=== PATIENT | female | born 1945 | race Caucasian/White ===

== ENCOUNTER → 2017-06-19 | Outpatient (CLI) | payer MEDICARE ==
[2017-06-19 11:38] LABS: ALT 36 U/L (9-52); AST 23 U/L (14-36); Alkaline Phosphatase 81 U/L (38-126); Anion Gap 7 mmol/L; Blood Urea Nitrogen 16 mg/dL (7-17); Calcium 9.4 mg/dL (8.4-10.2); Carbon Dioxide 27 mmol/L (22-30); Chloride 105 mmol/L (98-107); Cholesterol 174 mg/dL (<200); Glucose 161 mg/dL (74-99); HDL Cholesterol 78 mg/dL (40-60); Non-African American GFR(MDRD) >60 (>60 ml/min/1.73 sqM); Potassium 4.2 mmol/L (3.5-5.1); Sodium 139 mmol/L (137-145); Total Bilirubin 0.6 mg/dL (0.2-1.3); Total Protein 6.5 g/dL (6.3-8.2)
[2017-06-19 16:23] LABS: Urine Creatinine 179.8 mg/dL
== END | disposition home or self-care (01) ==
LOC: LABWHC1 10:53
PROVIDERS: ATTEND Internal Medicine Endocrinology, Diabetes & Metabolism
DX: E11.65 Type 2 diabetes mellitus with hyperglycemia (principal)
CPT/HCPCS: 36415; 80053; 80061; 82043; 82570

== ENCOUNTER → 2018-05-01 | Outpatient (CLI) | payer MEDICARE ==
[2018-05-01 16:25] LABS: Albumin 4.3 g/dL (3.80-4.90); Albumin/Globulin Ratio 2.53 (1.20-2.10); Anion Gap 8.4 mmol/L (4.00-12.00); Calcium 9.3 mg/dL (8.7-10.3); Carbon Dioxide 27.6 mmol/L (21.6-31.8); Globulin 1.7 g/dL (2.1-3.7); LDL Cholesterol,Calculated 123.4 mg/dL (0.0-131.0); Potassium 4.2 mmol/L (3.5-5.5); Total Bilirubin 0.6 mg/dL (0.3-1.2); VLDL Calculation 23.6 mg/dL (5.00-40.00)
[2018-05-01 18:45] LABS: Hemoglobin A1C 7.2 % (4.0-6.0)
== END ==
LOC: LABWHC1 10:02
PROVIDERS: ATTEND Internal Medicine Endocrinology, Diabetes & Metabolism
DX: E11.65 Type 2 diabetes mellitus with hyperglycemia (principal)
CPT/HCPCS: 36415; 80053; 80061; 82043; 82570; 83036

== ENCOUNTER 2018-11-28 17:36 | Emergency (ER) | payer MEDICARE ==
[2018-11-28] MEDS ORDERED: KETOROLAC 30 MG/ML 1 ML VIAL IVP STA (18:14)
[2018-11-28 18:27] LABS: Glucose,Whole Blood 199 mg/dL (75-99)
[2018-11-28] MEDS ORDERED: INSULIN NPH 300 UNIT/3 ML VIAL SQ STA (18:38)
--- NOTE | 2018-11-28 19:30 | ED ---
General Adult HPI - General Chief complaint: Extremity Injury, Upper Stated complaint: Fall Time Seen by Provider: 11/28/18 17:42 Source: patient, EMS Mode of arrival: EMS Limitations: no limitations - History of Present Illness Initial comments: 72-year-old female patient presents to the emergency department today for evaluation after experiencing a fall. Patient states she was walking from a store through the parking lot when she tripped over some rough asphalt and fell forward. Patient states she did strike her face on the ground. She denies any loss of consciousness with the injury. Patient states she did fall on out stretched hands and is experiencing right shoulder discomfort. Patient states she also landed on both knees. States both knees are painful to touch. States she does have pain with bending. She denies any numbness or tingling to extremities. Denies any headache, blurred vision, double vision, nausea, or vomiting. Denies any dizziness or weakness. Denies any previous injury to the shoulder or knees. Patient denies any neck pain, back pain, chest pain, shortness of breath, abdominal pain, nausea, vomiting, or difficulties with bowel movements or urination. - Related Data Home Medications Medication Instructions Recorded Confirmed Ergocalciferol (Vitamin D2) 50,000 unit PO Q7D 11/28/18 11/28/18 [Vitamin D2] Insulin NPH Human Isophane 15 unit SQ BID 11/28/18 11/28/18 [NovoLIN N] Ramipril [Altace] 2.5 mg PO DAILY 11/28/18 11/28/18 Sertraline [Zoloft] 50 mg PO HS 11/28/18 11/28/18 Sertraline [Zoloft] 100 mg PO DAILY 11/28/18 11/28/18 Simvastatin [Zocor] 40 mg PO HS 11/28/18 11/28/18 traMADol HCL [Ultram] 50 mg PO TID PRN 11/28/18 11/28/18 Allergies Allergy/AdvReac Type Severity Reaction Status Date / Time No Known Allergies Allergy Verified 11/28/18 18:07 Review of Systems ROS Statement: Those systems with pertinent positive or pertinent negative responses have been documented in the HPI. ROS Other: All systems not noted in ROS Statement are negative. Past Medical History Past Medical History: Diabetes Mellitus, Hyperlipidemia History of Any Multi-Drug Resistant Organisms: None Reported Past Surgical History: Cholecystectomy, Tonsillectomy Past Psychological History: Anxiety, Depression Smoking Status: Former smoker Past Alcohol Use History: None Reported Past Drug Use History: None Reported General Exam Limitations: no limitations General appearance: alert, in no apparent distress, other (Physical well- developed, well-nourished elderly female patient in no acute distress. Vital signs upon presentation are temperature 98.0F, pulse 94, respiration 16, blood pressure 146/107, pulse ox 97% on room air.) Head exam: Present: atraumatic, normocephalic, normal inspection Eye exam: Present: normal appearance, PERRL, EOMI. Absent: scleral icterus, conjunctival injection, periorbital swelling ENT exam: Present: normal oropharynx, mucous membranes moist, other (Patient has swelling and abrasion noted to the left lower lip. Dentition is intact with no loose or broken teeth.). Absent: normal exam Neck exam: Present: normal inspection, full ROM, other (Nontender, no step-off, no deformity to firm midline palpation of the posterior cervical spine. Full range of motion without pain or limitation.). Absent: tenderness, meningismus, lymphadenopathy Respiratory exam: Present: normal lung sounds bilaterally. Absent: respiratory distress, wheezes, rales, rhonchi, stridor Cardiovascular Exam: Present: regular rate, normal rhythm, normal heart sounds. Absent: systolic murmur, diastolic murmur, rubs, gallop, clicks GI/Abdominal exam: Present: soft, normal bowel sounds. Absent: distended, tenderness, guarding, rebound, rigid Extremities exam: Present: full ROM, normal capillary refill, other (Right shoulder exam is normal, skin is pink, warm, dry. Cap refills less than 3 seconds. No swelling. No abrasion. No deformity. Bilateral knees exhibit soft tissue swelling anteriorly. There is abrasion noted to the left anterior knee. Ecchymosis noted to the right anterior knee. Patient does have full flexion and extension bilaterally. Skin is pink, warm, dry. Cap refills less than 3 seconds. Pedal and posttibial pulses are 2+ and equal bilaterally.). Absent: normal inspection, tenderness, pedal edema, joint swelling, calf tenderness Back exam: Present: normal inspection, other (Nontender, no step-off, no deformity to firm midline palpation of the thoracic and lumbar vertebrae. Full range of motion without pain or limitation.). Absent: vertebral tenderness Neurological exam: Present: alert, oriented X3, CN II-XII intact Psychiatric exam: Present: normal affect, normal mood Skin exam: Present: warm, dry, intact, normal color. Absent: rash Course Vital Signs 11/28/18 11/28/18 11/28/18 17:47 19:37 20:49 Temperature 98.0 F 97.2 F L 98 F Pulse Rate 94 87 83 Respiratory 16 18 16 Rate Blood Pressure 146/107 140/78 156/94 O2 Sat by Pulse 97 97 98 Oximetry Medical Decision Making - Medical Decision Making 72-year-old female patient presents to the emergency department today for evaluation experiencing a fall. Patient was complaining of bilateral knee pain and right shoulder pain. She had no neck or back pain. No spinal tenderness. X-rays of the bilateral knees were obtained and showed no acute fractures. X-ray of the right shoulder showed no acute fracture dislocation. I did discuss findings and results with the patient. She'll be discharged home to follow-up with greenhouse specialist for further evaluation. [facility] and will be giving them a call. She is instructed to take Tylenol and Motrin for pain control. She is instructed to apply ice to the painful areas and to rest the limbs. She is instructed to follow-up with the primary care physician for recheck in 1-2 days. Return parameters were discussed in detail. She verbalizes understanding and agrees with this plan. - Lab Data Lab Results 11/28/18 Range/Units 18:26 POC Glucose (mg/dL) 199 H (75-99) mg/dL POC Glu Side Stitching Machine Operator ID Jocelyn Monzon - Radiology Data Radiology results: report reviewed, image reviewed 6 views of the bilateral knees are obtained. Report was reviewed in its entirety. Impression by Dr. Almanza shows no acute process, right and left knee radiographic examination. 3 views of the right shoulder obtained. Report reviewed in its entirety. Impression by Dr. Almanza shows no acute process. Disposition Clinical Impression: Right shoulder strain, Knee contusion, Abrasion of left knee Disposition: HOME SELF-CARE Condition: Good Instructions (If sedation given, give patient instructions): Rotator Cuff Injury (ED), Contusion in Adults (ED), Abrasion (ED) Additional Instructions: Follow-up with greenhouse specialist for recheck as soon as possible. Take Tylenol or Motrin for pain control. Keep wounds clean and dry. Follow-up with her primary care physician for recheck in 1-2 days. Return to the emergency department immediately for any new, worsening, or concerning symptoms. Is patient prescribed a controlled substance at d/c from ED?: No Referrals: Doyle Chamorro DO [Primary Care Provider] - 1-2 days Time of Disposition: 20:38
--- NOTE | 2018-11-28 19:54 | XR ---
PROCEDURE: XR knee complete bilateral - 6V total DATE AND TIME: 11/28/2018 7:07 PM CLINICAL INDICATION: PHH; Pain TECHNIQUE: Department protocol COMPARISON: None RIGHT KNEE FINDINGS: There is no fracture or malalignment. The soft tissues are unremarkable. Scatter ed mild and moderate osteoarthritis changes noted. LEFT KNEE FINDINGS: There is no fracture or malalignment. The soft tissues are unremarkable. Scattere d mild and moderate osteoarthritis changes noted. IMPRESSION: No acute process, right and left knee radiographic examination.
--- NOTE | 2018-11-28 19:57 | XR ---
PROCEDURE: XR shoulder complete RT - 3V DATE AND TIME: 11/28/2018 7:07 PM CLINICAL INDICATION: Trauma, pain TECHNIQUE: Department protocol COMPARISON: None FINDINGS: There is no fracture or malalignment. The soft tissues are unremarkable. IMPRESSION: NO ACUTE PROCESS.
[2018-11-28] MEDS ORDERED: HYDROcodone/APAP 5-325MG 1 EACH TAB PO STA (20:42)
[2018-11-28] MEDS ORDERED: ACET/COD 300 MG/30 MG STARTER PACK 6 TAB BTL PO STA (20:42)
[2018-11-28 20:50] VITALS: BP 156/94; PULSE 83; RESP 16; TEMP 98
== END 2018-11-28 21:15 | disposition home or self-care (01) ==
LOC: EC 17:36
DX: S46.911A Strain of unspecified muscle, fascia and tendon at shoulder and upper arm level, right arm, initial encounter (principal); S80.01XA Contusion of right knee, initial encounter; S80.212A Abrasion, left knee, initial encounter; S00.511A Abrasion of lip, initial encounter; E11.9 Type 2 diabetes mellitus without complications; E78.5 Hyperlipidemia, unspecified; F41.9 Anxiety disorder, unspecified; F32.9 Major depressive disorder, single episode, unspecified; Z87.891 Personal history of nicotine dependence; Z79.4 Long term (current) use of insulin; Z79.899 Other long term (current) drug therapy; W18.09XA Striking against other object with subsequent fall, initial encounter; Y93.01 Activity, walking, marching and hiking
CPT/HCPCS: 36415; 73562; 73030; 99284; 96374; J1885

== ENCOUNTER → 2019-05-01 | Outpatient (CLI) | payer MEDICARE ==
--- NOTE | 2019-05-02 04:16 | US ---
EXAMINATION TYPE: US carotid duplex BILAT DATE OF EXAM: 05/01/2019 COMPARISON: No previous ultrasound. CLINICAL HISTORY: 73-year-old female Z91.81 FREQ FALLS. Frequent falls. Hx diabetes, HTN, hyperlipide dori. Previous smoker. TECHNIQUE: Carotid duplex ultrasound examination. In direct upper criteria is utilized. FINDINGS: EXAM MEASUREMENTS: RIGHT: Peak Systolic Velocity (PSV) cm/sec ----- Right CCA: 59.8 ----- Right ICA: 74.3 ----- Right ECA: 71.0 ICA/CCA ratio: 1.2 RIGHT: End Diastole cm/sec ----- Right CCA: 15.4 ----- Right ICA: 25.9 ----- Right ECA: 0.0 LEFT: Peak Systolic Velocity (PSV) cm/sec ----- Left CCA: 66.8 ----- Left ICA: 76.2 ----- Left ECA: 60.7 ICA/CCA ratio: 1.1 LEFT: End Diastole cm/sec ----- Left CCA: 16.2 ----- Left ICA: 27.3 ----- Left ECA: 0.0 VERTEBRALS (direction of flow): Right Vertebral: Antegrade Left Vertebral: Antegrade Rhythm: Normal Leveler Helper notes: Intimal thickening seen bilaterally. Minimal plaque seen bilateral carotid bifurca tions. No elevated velocities obtained. Prominent but nonenlarged lymph node seen along the left neck measurin.4 x 0.9 x 0.5 cm. IMPRESSION: No hemodynamically significant proximal ICA stenosis on either side. Criteria for Assigning % of Stenosis / Diameter reduction (Estimation based on the indirect measurements of the internal carotid artery velocities (ICA PSV). 1. Normal (no stenosis)=ICA PSV < 125 cm/s: ratio < 2.0: ICA EDV<40 cm/s. 2. Less than 50% stenosis=ICA PSV < 125 cm/s: ratio < 2.0: ICA EDV<40 cm/s. 3. 50 to 69% stenosis=ICA PSV of 125 to 230 cm/s: ration 2.0 ? 4.0: ICA EDV 40-100 cm/s. 4. Greater than 70% stenosis to near occlusion= ICA PSV > 230 cm/s: ratio > 4.0: ICA EDV > 100 cm/s. 5. Near occlusion= ICA PSV velocities may be low or undetectable: variable ratio and ICA EDV. 6. Total occlusion=unable to detect flow.
== END | disposition home or self-care (01) ==
LOC: RADUSWWP 16:57
PROVIDERS: ATTEND Family Medicine
DX: R27.9 Unspecified lack of coordination (principal); Z91.81 History of falling
CPT/HCPCS: 93880

== ENCOUNTER → 2019-05-01 | Outpatient (CLI) | payer MEDICARE ==
--- NOTE | 2019-05-01 22:42 | MR ---
EXAMINATION TYPE: MR brain wo con DATE OF EXAM: 05/01/2019 COMPARISON: MRI brain October 19, 2014 HISTORY: Frequent falls, head injury, incontinence, cognitive and motor skill impairment, and bilater al hearing loss TECHNIQUE: Multiplanar, multisequence imaging of the brain and brainstem is performed without IV cont rast. FINDINGS: Diffusion weighted images demonstrate no evidence of a recent infarct or other diffusion abnormality. There is no worrisome extra-axial fluid collection. There is diffuse ventricular and sulcal prominenc e. Findings most prominent over bilateral frontal lobes. There are scattered foci of T2 hyperintensit y seen throughout the white matter bilaterally most prominent in the periventricular levels. T2*weigh hetal images show no suspicious intraparenchymal blood product. Midline structures redemonstrate empty sella morphology. The craniocervical junction appears within normal limits. Normal vascular flow voids are present. The visualized sinuses are clear and the globe s are intact. No suspicious fluid signal bilateral mastoid air cells is present. IMPRESSION: Fairly moderate diffuse cerebral atrophy most prominent over bilateral frontal lobes and moderate chronic small vessel ischemic change. Some progression from 2015 study thought present.
== END | disposition home or self-care (01) ==
LOC: RADMRIMAIN 18:05
PROVIDERS: ATTEND Family Medicine
DX: G31.9 Degenerative disease of nervous system, unspecified (principal); I67.82 Cerebral ischemia
CPT/HCPCS: 70551

== ENCOUNTER → 2020-11-16 | Outpatient (CLI) | payer MEDICARE ==
--- NOTE | 2020-11-20 10:11 | MM ---
Reason for exam: clinical finding. History: Took estrogen for 1 year beginning at age 50. Physical Findings: Nurse Summary: 1cm nodule in the left breast at 9 o'clock (nurse mj). MG 3D Diag Mammo W/Cad CARLITO Bilateral CC and MLO view(s) were taken. These results were verbally communicated with the patient and result sheet given to the patient on 11/16/20. ASSESSMENT: Incomplete: need additional imaging evaluation, BI-RAD 0 RECOMMENDATION: Ultrasound of the left breast. (palpable)
--- NOTE | 2020-11-20 10:11 | USB ---
Reason for exam: additional evaluation requested from abnormal screening. History: Took estrogen for 1 year beginning at age 50. US Breast Limited LT Left limited breast ultrasound including focal area of concern, retroareolar and axilla demonstrates a 0.4 x 0.4 x 0.4cm round, cystic lesion at 9 o'clock palpable, benign appearing oil cyst and a 1.2 x 1.2 x 0.5cm oval axilla lymph node at the axilla, reactive benign appearing lymph node. These results were verbally communicated with the patient and result sheet given to the patient on 11/16/20. ASSESSMENT: Benign, BI-RAD 2 RECOMMENDATION: Routine screening mammogram of both breasts in 1 year.
== END | disposition home or self-care (01) ==
LOC: RADMAMWWP 08:57
PROVIDERS: ATTEND Family Medicine
DX: N60.12 Diffuse cystic mastopathy of left breast (principal); R59.0 Localized enlarged lymph nodes; N63.25 Unspecified lump in the left breast, overlapping quadrants
CPT/HCPCS: 77066; 76642; G0279; 77062

== ENCOUNTER → 2022-01-21 | Outpatient (CLI) | payer MEDICARE ==
[2022-01-21 16:37] LABS: ALT 17 U/L (8-44); AST 22 U/L (13-35); African American GFR (CKD) 73.3 (60.0-200.0); Albumin 4.2 g/dL (3.8-4.9); Albumin/Globulin Ratio 1.76 (1.60-3.17); Alkaline Phosphatase 74 U/L (41-126); Calcium 9.5 mg/dL (8.7-10.3); Carbon Dioxide 28.5 mmol/L (20.0-27.5); Chloride 103 mmol/L (96-109); Chol/HDL Ratio 2.37 Ratio; Globulin 2.4 g/dL (1.6-3.3); Glucose 108 mg/dL (70-110); LDL Cholesterol,Calculated 95.5 mg/dL (0.0-131.0); Non-African American GFR(CKD) 63.2 (60.0-200.0); Potassium 3.8 mmol/L (3.5-5.5); Sodium 143 mmol/L (135-145); Total Protein 6.6 g/dL (6.2-8.2)
[2022-01-21 19:31] LABS: Microalbumin Creatinine Ratio <30 mg/g Creat (0-30)
== END | disposition home or self-care (01) ==
LOC: LABWHC1 08:20
PROVIDERS: ATTEND Internal Medicine Endocrinology, Diabetes & Metabolism
DX: E11.65 Type 2 diabetes mellitus with hyperglycemia (principal)
CPT/HCPCS: 36415; 80053; 80061; 82043; 82570; 83036; 84443

== ENCOUNTER → 2022-03-16 | Outpatient (CLI) | payer MEDICARE ==
--- NOTE | 2022-03-16 15:55 | P.SLEEP ---
History of Present Illness DATE: 03/16/2022 CONSULTATION/NEW PATIENT EVALUATION HISTORY OF PRESENT ILLNESS/SLEEP-WAKE EVALUATION: 76 year old lady had been e valuated in the sleep center for possible obstructive sleep apnea hypopnea syndrome. SLEEP SCHEDULE: Usually sleep schedule from midnight to 2 AM until 11-30 to 12 noon. FALLING ASLEEP: Usually no problems with falling asleep, although patient has TV set and bedroom and also watching her phone. DURING SLEEP: Patient has loud snoring and witnessed episodes of sleep apneas. She wakes up from sleep multiple times with up to 4 episodes of nocturia. Positive history of dry mouth and gasping for air. No history of hypnogogical hallucinations, sleep paralysis, or cataplexy. DURING THE DAY/WAKE STATE: In the morning patient wake up tired, has problems with memory and concentration, falling asleep during the day. Positive history of the irritability, depression, anxiety. [place] sleepiness scale is increased to 11. Patient may take unintentional naps while watching TV. PAST MEDICAL HISTORY: Hypertension, diabetes mellitus, sinuses problems, anxiety, depression, anemia in childhood. PAST SURGICAL HISTORY: Cholecystectomy, bilateral cataract surgery. MEDICATIONS: Metformin, insulin, ramipril, simvastatin, oxybutynin, aspirin, Zoloft. SOCIAL HISTORY: Negative for smoking, alcohol consumption occasional. FAMILY HISTORY: Diabetes. REVIEW OF SYSTEMS: Snoring, multiple awakenings from sleep, sleepiness during the day. No fevers. No double vision. No recent chest pain. No shortness of breath. No abdominal pain. No bleeding episodes. No blood in urine. No seizure episodes. PHYSICAL EXAMINATION: GENERAL: A pleasant patient without any distress. VITAL SIGNS: BP 142/75, HR 69, RR 14, weight 186.4 pounds, height 5 foot 3-3/4 inches, body mass index 32.2. HEENT: PERRLA, EOMI. Evaluation of oropharynx showed tongue protrudes midline, low position of soft palate Mallampati 23. NECK: Supple. No JVD. Thyroid is not palpable. 15 inches in circumference. LUNGS: Clear to percussion and to auscultation. Good air exchange. No wheezing or rhonchi. HEART: S1, S2 regular. No murmurs, gallops or rubs. ABDOMEN: Soft and nontender. Bowel sounds are present. No organomegaly appreciated. EXTREMITIES: No clubbing or cyanosis. ASSEMBLY LEAD PERSON: Awake, alert, and oriented x3. Cranial nerves 2 to 7 intact. There is no fasciculation or atrophy noted. No focal deficits observed. ASSESSMENT: 1. Snoring, witnessed episodes of sleep apneas, moderately low position of soft palate, sleepiness [place] Sleepiness Scale is 11, multiple awakenings from sleep. Obstructive sleep apnea hypopnea syndrome. 2. Hypertension. 3 diabetes mellitus. 4. Anxiety. 5 depression. 6. Sinuses problems. 7. Status post cholecystectomy. 8. Status post cataract surgery. 9. Sleep delay syndrome PLAN: 1. Polysomnography for evaluation of patient's breathing during sleep. 2. CPAP/BiPAP titration if sleep study confirms obstructive sleep apnea- hypopnea syndrome. 3. Preferable position during sleep on the side. 4. No driving if patient feels any sleepiness. Patient is aware of civil and criminal liability for unsafe driving. 5. Sleep hygiene with regular sleep time for at least 7.5-8 hours. 6. Watching weight. 7. Less bright light in the evening to move sleep schedule time early. Thank you very much for referring this patient for consultation. Sincerely, Jose Miguel Wagner MD, PhD, FAASM. Diplomat of [place] [employer], Sleep Medicine Board by [place] [employer] [place] [employer] Process Control Operator of [facility] Past Medical History Past Medical History: Diabetes Mellitus, Hyperlipidemia History of Any Multi-Drug Resistant Organisms: None Reported Past Surgical History: Cholecystectomy, Tonsillectomy Past Psychological History: Anxiety, Depression Past Alcohol Use History: None Reported Past Drug Use History: None Reported Medications and Allergies Home Medications Medication Instructions Recorded Confirmed Type Ergocalciferol (Vitamin D2) 50,000 unit PO Q7D 11/28/18 11/28/18 History [Vitamin D2] Insulin NPH Human Isophane 15 unit SQ BID 11/28/18 11/28/18 History [NovoLIN N] Sertraline [Zoloft] 50 mg PO HS 11/28/18 11/28/18 History Sertraline [Zoloft] 100 mg PO DAILY 11/28/18 11/28/18 History Simvastatin [Zocor] 40 mg PO HS 11/28/18 11/28/18 History ramipriL [Altace] 2.5 mg PO DAILY 11/28/18 11/28/18 History traMADol HCL [Ultram] 50 mg PO TID PRN 11/28/18 11/28/18 History Allergies Allergy/AdvReac Type Severity Reaction Status Date / Time No Known Allergies Allergy Verified 11/28/18 18:07 Sleep Note - Sleep Note Sleep Note: Temperature: Pulse Rate: Respiratory Rate: Blood Pressure: SpO2: Height: Weight: BMI: Neck Circumference:
== END ==
LOC: SLEEP 14:41
PROVIDERS: ATTEND Internal Medicine
DX: G47.33 Obstructive sleep apnea (adult) (pediatric) (principal); I10 Essential (primary) hypertension; E11.9 Type 2 diabetes mellitus without complications; G47.21 Circadian rhythm sleep disorder, delayed sleep phase type; F41.9 Anxiety disorder, unspecified; F32.A Depression, unspecified; Z90.49 Acquired absence of other specified parts of digestive tract; Z98.49 Cataract extraction status, unspecified eye; J34.9 Unspecified disorder of nose and nasal sinuses; Z87.891 Personal history of nicotine dependence
CPT/HCPCS: 99211

== ENCOUNTER → 2022-03-16 | Outpatient (CLI) | payer MEDICARE ==
--- NOTE | 2022-03-16 13:37 | XR ---
EXAMINATION TYPE: XR ankle complete LT DATE OF EXAM: 03/16/2022 1:21 PM INDICATION: Patient age:Female; 76 years old; Reason for study: BILAT KNEE PAIN L ANKLE PAIN; [facility]. COMPARISON: None TECHNIQUE: The left ankle is imaged in frontal, lateral and oblique projections. FINDINGS: There is no evidence of acute osseous pathology. The joint spaces are well-preserved without evidenc e of subluxation or dislocation. Kager's fat pad is intact. Mild soft tissue swelling around the ankl e. No radiopaque foreign bodies are identified. IMPRESSION: 1. No evidence of acute fracture. 2. Subcutaneous swelling around the ankle likely secondary to underlying soft tissue injury.
--- NOTE | 2022-03-16 13:42 | XR ---
EXAMINATION TYPE: XR knee complete bilateral DATE OF EXAM: 03/16/2022 1:21 PM INDICATION: Patient age:Female; 76 years old; Reason for study: BILAT KNEE PAIN L ANKLE PAIN; COMPARISON: None. TECHNIQUE: The Bilateral knee(s) was examined in 3 projections. Frontal, lateral and oblique. FINDINGS: Right: There is near complete joint space loss on the lateral aspect of the right knee. There is oste ophyte formation of the tibial plateau and patellar involving the patellofemoral groove. No evidence of fracture or joint effusion. Left: Mild degeneration changes with osteophyte formation and tibial plateau and patella. Minimal mehran nt space loss noted of the medial knee. No evidence of fracture. Atherosclerosis of the arterial vasculature. IMPRESSION: 1. No acute osseous pathology. 2. Moderate to severe tricompartmental osteoarthrosis changes of the right knee most pronounced in th e patellofemoral joint and the lateral aspect of the knee. 3. Mild tricompartmental osteoarthrosis of the left lower extremity.
== END | disposition home or self-care (01) ==
LOC: RADXRMAIN 12:20
PROVIDERS: ATTEND Family Medicine
DX: M17.0 Bilateral primary osteoarthritis of knee (principal)

== ENCOUNTER → 2022-09-12 | Outpatient (CLI) | payer MEDICARE ==
[2022-09-15 11:49] LABS: Glucose 116
[2022-09-15 11:50] LABS: Chloride 105; Potassium 4.3; Sodium 144
[2022-09-15 11:51] LABS: Anion Gap 8.2; Carbon Dioxide 30.8
[2022-09-15 11:52] LABS: African American GFR (CKD) 76.6; BUN/Creat Ratio 25.94; Non-African American GFR(CKD) 66.1
[2022-09-15 11:53] LABS: Calcium 9.3; Total Protein 6.6
[2022-09-15 11:54] LABS: Albumin 4.5; Globulin 2.1
[2022-09-15 11:55] LABS: Albumin/Globulin Ratio 2.16
[2022-09-15 11:56] LABS: ALT 23; AST 27; Alkaline Phosphatase 86
[2022-09-15 11:58] LABS: VLDL Calculation 13.82
[2022-09-15 12:01] LABS: Chol/HDL Ratio 2.29
[2022-09-15 12:07] LABS: Blood Urea Nitrogen 22.7
== END | disposition home or self-care (01) ==
LOC: LABWHC1 09:07
PROVIDERS: ATTEND Internal Medicine Endocrinology, Diabetes & Metabolism
DX: E11.65 Type 2 diabetes mellitus with hyperglycemia (principal)
CPT/HCPCS: 36415; 80053; 80061; 82043; 82570; 83036; 84443

== ENCOUNTER 2023-08-06 03:11 | Inpatient (IN) | payer MEDICARE ==
--- NOTE | 2023-08-06 04:07 | XR ---
EXAM: XR Left Tibia and Fibula, 2 Views CLINICAL HISTORY: ITS.REASON XR Reason: fall injury TECHNIQUE: Frontal and lateral views of the left tibia and fibula. COMPARISON: No relevant prior studies available. IMPRESSION: 1. Trimalleolar fracture involving the medial malleolus, lateral malleolus, and posterior malleolus with mild lateral dislocation of the talus. 2. Soft tissue swelling.
[2023-08-06] MEDS: fentaNYL (PF) 50 MCG/ML 2 ML AMP IV STA (04:25)
[2023-08-06] MEDS ORDERED: NALOXONE 0.4 MG/ML 1 ML VIAL IV PRN (05:26)
[2023-08-06] MEDS ORDERED: HYDROmorphone 0.5 MG/0.5 ML SYRINGE IVP PRN (05:26)
[2023-08-06] MEDS ORDERED: DEXTROSE 50% SYRINGE 50 ML IVP PRN ×2 (05:28)
[2023-08-06 05:51] LABS: HCT 37.1 % (34.0-46.0); HGB 12.6 gm/dL (11.4-16.0); MCH 31.6 pg (25.0-35.0); MCV 92.8 fL (80.0-100.0); Mean Platelet Volume 7.9; Platelet Count 158 k/uL (150-450); RBC 3.99 m/uL (3.80-5.40); RDW 12.5 % (11.5-15.5); WBC 6.6 k/uL (3.8-10.6)
[2023-08-06 06:01] LABS: African American GFR (CKD) >90 (>60 ml/min/1.73 sqM); Anion Gap 9 mmol/L; Blood Urea Nitrogen 20 mg/dL (7-17); Calcium 8.8 mg/dL (8.4-10.2); Carbon Dioxide 25 mmol/L (22-30); Chloride 107 mmol/L (98-107); Glucose 100 mg/dL (74-99); Non-African American GFR(CKD) >90 (>60 ml/min/1.73 sqM); Potassium 3.9 mmol/L (3.5-5.1); Sodium 141 mmol/L (137-145)
[2023-08-06 06:16] LABS: INR 0.9 (<1.2)
--- NOTE | 2023-08-06 06:30 | ED ---
Extremity Problem HPI - General Chief complaint: Extremity Injury, Lower Stated complaint: Fall, ankle injury Time Seen by Provider: 08/06/23 03:17 Source: patient, EMS Mode of arrival: EMS Limitations: no limitations - History of Present Illness Initial comments: This patient is a 77-year-old woman here to have evaluation of left leg injury. The patient states that she typically walks with a walker and as she was going through her home tonight she stumbled. She states she saw a blinding flash of light and fell. She was then not able to bear any weight on her left ankle. The patient noticed that she had a laceration there and was bleeding. She called EMS who arrived and noted laceration. They dressed the injury and transported her here. Patient complains of pain at the left ankle, worse with attempted movement. She is not able to put any weight on her leg. MD Complaint: extremity pain -: hour(s) Location: left History of Same: No Quality: sharp Consistency: constant Improves with: immobilization Worsens with: palpation Associated Symptoms: denies other symptoms - Related Data Home Medications Medication Instructions Recorded Confirmed Sertraline [Zoloft] 150 mg PO DAILY 11/28/18 08/06/23 Simvastatin [Zocor] 40 mg PO DAILY 11/28/18 08/06/23 ramipriL [Altace] 2.5 mg PO HS 11/28/18 08/06/23 traMADol HCL [Ultram] 50 mg PO BID PRN 11/28/18 08/06/23 Aspirin EC [Ecotrin Low Dose] 81 mg PO DAILY 08/06/23 08/06/23 Docusate [Colace] 100 mg PO HS 08/06/23 08/06/23 Fiber Well Gummies 1 cap PO HS 08/06/23 08/06/23 Furosemide [Lasix] 20 mg PO DAILY PRN 08/06/23 08/06/23 Loratadine 10 mg PO HS 08/06/23 08/06/23 SUMAtriptan succinate [Imitrex] 100 mg PO BID PRN 08/06/23 08/06/23 diphenhydrAMINE HCL [Benadryl] 25 mg PO HS 08/06/23 08/06/23 metFORMIN HCL 1,000 mg PO DAILY PRN 08/06/23 08/06/23 Previous Rx's Medication Instructions Recorded Cholecalciferol [Vitamin D3 (25 50 mcg PO DAILY tab 08/09/23 Mcg = 1000 Iu)] Docusate [Colace] 100 mg PO BID #60 capsule 08/09/23 Enoxaparin [Lovenox] 40 mg SQ DAILY each 08/09/23 Famotidine [Pepcid] 20 mg PO BID tab 08/09/23 HYDROcodone/APAP 5-325MG [Franklin 5] 1 - 2 each PO Q4-6H PRN #32 tab 08/09/23 INSULIN ASPART (NovoLOG) [NovoLOG 0 unit SQ ACHS each 08/09/23 (formulary)] Magnesium Hydroxide [Milk of 2,400 mg PO DAILY PRN ml 08/09/23 Magnesia] Multivitamins, Thera [Multivitamin 1 each PO DAILY@1200 tab 08/09/23 (formulary)] Zinc Sulfate [Orazinc] 220 mg PO DAILY 14 Days #14 cap 08/09/23 Allergies Allergy/AdvReac Type Severity Reaction Status Date / Time No Known Allergies Allergy Verified 08/06/23 12:02 Review of Systems ROS Statement: Those systems with pertinent positive or pertinent negative responses have been documented in the HPI. ROS Other: All systems not noted in ROS Statement are negative. Constitutional: Denies: fever Eyes: Denies: vision change Respiratory: Denies: cough, dyspnea Cardiovascular: Denies: chest pain, palpitations, syncope Gastrointestinal: Denies: abdominal pain, vomiting, diarrhea Genitourinary: Denies: dysuria Musculoskeletal: Reports: as per HPI, arthralgia. Denies: back pain Skin: Denies: rash Neurological: Denies: headache, weakness, numbness Hematological/Lymphatic: Denies: easy bleeding Past Medical History Past Medical History: Diabetes Mellitus, Hyperlipidemia History of Any Multi-Drug Resistant Organisms: None Reported Past Surgical History: Cholecystectomy, Tonsillectomy Past Psychological History: Anxiety, Depression Smoking Status: Never smoker Past Alcohol Use History: None Reported Past Drug Use History: None Reported General Exam Limitations: no limitations General appearance: alert, in no apparent distress Head exam: Present: atraumatic, normocephalic Eye exam: Present: normal appearance. Absent: scleral icterus, conjunctival injection ENT exam: Present: normal oropharynx Neck exam: Present: normal inspection, full ROM. Absent: tenderness Respiratory exam: Present: normal lung sounds bilaterally. Absent: respiratory distress, wheezes, rales, rhonchi, stridor Cardiovascular Exam: Present: regular rate, normal rhythm, normal heart sounds. Absent: systolic murmur, diastolic murmur, rubs, gallop GI/Abdominal exam: Present: soft. Absent: distended, tenderness, guarding, rebound, rigid, mass Left Hip exam: Present: normal inspection, full ROM. Absent: tenderness, swelling Upper Leg exam: Present: normal inspection, full ROM. Absent: tenderness, swelling Knee exam: Present: normal inspection, full ROM. Absent: tenderness, swelling Lower Leg exam: Present: normal inspection, full ROM. Absent: tenderness, swelling Ankle exam: Present: tenderness, swelling, laceration. Absent: full ROM, ecchymosis Foot/Toe exam: Present: normal inspection, full ROM. Absent: tenderness, swelling Neurovascular tendon exam: Present: no vascular compromise. Absent: abnormal cap refill, motor deficit, sensory deficit, tendon deficit Back exam: Present: normal inspection. Absent: vertebral tenderness Neurological exam: Present: alert. Absent: motor sensory deficit Skin exam: Present: warm, dry, normal color, other (Patient has approximately 12 cm laceration anterior aspect left ankle.) Course Vital Signs 08/06/23 08/06/23 03:14 05:16 Temperature 96.9 F L Pulse Rate 80 82 Respiratory 18 18 Rate Blood Pressure 143/88 135/79 O2 Sat by Pulse 100 99 Oximetry Procedures - Orthopedic Fracture Reduction Fracture #1 Consent Obtained: verbal consent Side: left Fracture Reduction Location: tibia, fibula Technique: direct manipulation Post Reduction X-rays Demonstrate: acceptable reduction Post-Reduction Neuro Exam: intact Post-Reduction Vascular Exam: intact Splint Applied: Yes Patient Tolerated Procedure: well, no complications - Orthopedic Splinting/Casting Injury #1 Side: left Lower Extremity Injury Location: ankle Lower Extremity Immobilizer: stirrup splint Medical Decision Making - Medical Decision Making Patient is a 77-year-old woman here with left ankle injury. On arrival there does appear to be laceration to the anterior aspect of the ankle, suspect open fracture. Antibiotics are ordered. The patient had analgesia with EMS and initially declined but then excepted additional pain medication. Following x- ray, I irrigated the injury. 1 L of sterile saline. Wet-to-dry dressing followed by cast padding and then stirrup splint is applied. There was small amount of reduction achieved at the bedside. I discussed the case with Dr. Rod who then called anesthesia and they will take the patient to the OR this morning in approximately 2 hours. The patient had x-ray of the left ankle which does show bimalleolar ankle fracture with lateral displacement, by my interpretation. Was pt. sent in by a medical professional or institution (, [facility], [facility], urgent care, hospital, or [facility]...) When possible be specific @ -[No] Did you speak to anyone other than the patient for history (EMS, parent, family, police, friend...)? What history was obtained from this source @ -[No] Did you review nursing and triage notes (agree or disagree)? Why? @ -[I reviewed and agree with nursing and triage notes] Were old charts reviewed (outside hosp., previous admission, EMS record, old EKG, old radiological studies, urgent care reports/EKG's, [facility] records)? Report findings @ -[No old charts were reviewed] Differential Diagnosis (chest pain, altered mental status, abdominal pain women, abdominal pain men, vaginal bleeding, weakness, fever, dyspnea, syncope, headache, dizziness, GI bleed, back pain, seizure, CVA, palpatations, mental health, musculoskeletal)? @ -[Differential Musculoskeletal Muscular strain, contusion, ligament sprain, fracture, arthritis, septic arthritis, bursitis, cellulitis, muscle spasm, nerve compression, DVT, arterial occlusion, herpes zoster, electrolyte abnormality, tumor.... This is not meant to be in all inclusive list EKG interpreted by me (3pts min.). @ -[As above] X-rays interpreted by me (1pt min.). @ -[I interpreted as above CT interpreted by me (1pt min.). @ -[None done] U/S interpreted by me (1pt. min.). @ -[None done] What testing was considered but not performed or refused? (CT, X-rays, U/S, labs)? Why? @ -[None] What meds were considered but not given or refused? Why? @ -[None] Did you discuss the management of the patient with other professionals (professionals i.e. , [facility], [facility], lab, RT, psych nurse, social science analyst, research center partner, teacher, [place] patrol officer, shoe parts caser)? Give summary @ -[Discussed with orthopedic surgery as above they will take patient to the OR Was smoking cessation discussed for >3mins.? @ -[No] Was critical care preformed (if so, how long)? @ -[No] Were there social determinants of health that impacted care today? How? (Homelessness, low income, unemployed, alcoholism, drug addiction, transportation, low edu. Level, literacy, decrease access to med. care, care home, rehab)? @ -[No] Was there de-escalation of care discussed even if they declined (Discuss DNR or withdrawal of care, Hospice)? DNR status @ -[No] What co-morbidities impacted this encounter? (DM, HTN, Smoking, COPD, CAD, Cancer, CVA, ARF, Chemo, Hep., AIDS, mental health diagnosis, sleep apnea, morbid obesity)? @ -[None] Was patient admitted / discharged? Hospital course, mention meds given and route, prescriptions, significant lab abnormalities, going to OR and other pertinent info. @ -[See above Undiagnosed new problem with uncertain prognosis? @ -[No] Drug Therapy requiring intensive monitoring for toxicity (Heparin, Nitro, Insulin, Cardizem)? @ -[No] Were any procedures done? @ -[No] Diagnosis/symptom? @ -[Acute open fracture of the ankle, bimalleolar Acute, or Chronic, or Acute on Chronic? @ -[Acute Uncomplicated (without systemic symptoms) or Complicated (systemic symptoms)? @ -[Uncomplicated Side effects of treatment? @ -[No] Exacerbation, Progression, or Severe Exacerbation? @ -[No] Poses a threat to life or bodily function? How? (Chest pain, [place], [place], pneumonia, PE, COPD, DKA, ARF, appy, cholecystitis, CVA, Diverticulitis, Homicidal, Suicidal, threat to staff... and all critical care pts) @ -[Yes open fracture has significant risk of developing infection/osteomyelitis - Lab Data Result diagrams: 08/09/23 07:29 08/09/23 07:29 Disposition Clinical Impression: Fracture of ankle Disposition: ADMITTED IP TO THIS HOSP Condition: Stable Is patient prescribed a controlled substance at d/c from ED?: No
[2023-08-06 06:47] LABS: Partial Thromboplastin Time 21.2 sec (22.0-30.0)
[2023-08-06 06:48] LABS: Glucose,Whole Blood 128 mg/dL (70-110)
[2023-08-06 07:56] LABS: Eosinophils # (M) 0.07 k/uL (0-0.7); Lymphocytes # (M) 1.39 k/uL (1.0-4.8); Monocytes # (M) 0.53 k/uL (0-1.0); Neutrophils # (M) 4.62 k/uL (1.3-7.7); Neutrophils % (M) 70 %; Nucleated Red Blood Cells 0 /100 WBC (0-0); Total Cells Counted 100
[2023-08-06 07:57] LABS: Reactive Lymphocytes Present
[2023-08-06] MEDS ORDERED: MORPHINE SULFATE (PF) 0.3 MG/0.3 ML SYR ONE (08:18)
[2023-08-06] MEDS ORDERED: fentaNYL (PF) 50 MCG/ML 2 ML AMP ONE (08:18)
[2023-08-06] MEDS ORDERED: PROPOFOL 10 MG/ML 20 ML VIAL IV ONE (08:18)
[2023-08-06] MEDS: SODIUM CHLORIDE 0.9% 1,000 ML IV ONE (08:18)
[2023-08-06] MEDS ORDERED: ONDANSETRON 4 MG/2 ML VIAL ONE (08:18)
[2023-08-06] MEDS ORDERED: MIDAZOLAM 2 MG/2 ML VIAL ONE (08:18)
[2023-08-06] MEDS: SODIUM CHLORIDE 0.9% 100 ML with ceFAZolin 2,000 MG IV ONE (08:26)
--- NOTE | 2023-08-06 08:27 | P.HPOR ---
History of Present Illness H&P Date: 08/06/23 Chief Complaint: Left ankle injury The patient is a 77-year-old female with a history of diabetes and hyperlipidemia who presented to the emergency department with an ankle injury early this morning. She normally ambulates with a walker. She was found to have an open ankle fracture upon evaluation in the emergency department. The wound was irrigated in the emergency department and she was given Ancef. Orthopedics was called for further evaluation and treatment. Review of Systems Musculoskeletal: left: ankle pain, ankle stiffness, ankle swelling Past Medical History Past Medical History: Diabetes Mellitus, Hyperlipidemia History of Any Multi-Drug Resistant Organisms: None Reported Past Surgical History: Cholecystectomy, Tonsillectomy Past Anesthesia/Blood Transfusion Reactions: No Reported Reaction Past Psychological History: Anxiety, Depression Smoking Status: Never smoker Past Alcohol Use History: None Reported Past Drug Use History: None Reported Medications and Allergies Home Medications Medication Instructions Recorded Confirmed Type Insulin NPH Human Isophane 15 - 45 unit SQ BID 11/28/18 08/06/23 History [NovoLIN N] Sertraline [Zoloft] 150 mg PO DAILY 11/28/18 08/06/23 History Simvastatin [Zocor] 40 mg PO DAILY 11/28/18 08/06/23 History ramipriL [Altace] 2.5 mg PO HS 11/28/18 08/06/23 History traMADol HCL [Ultram] 50 mg PO BID PRN 11/28/18 08/06/23 History Aspirin EC [Ecotrin Low Dose] 81 mg PO DAILY 08/06/23 08/06/23 History Azithromycin [Zithromax Z Pack] See Taper PO DIRECTED 08/06/23 08/06/23 History Docusate [Colace] 100 mg PO HS 08/06/23 08/06/23 History Fiber Well Gummies 1 cap PO HS 08/06/23 08/06/23 History Furosemide [Lasix] 20 mg PO DAILY PRN 08/06/23 08/06/23 History Loratadine 10 mg PO HS 08/06/23 08/06/23 History SUMAtriptan succinate [Imitrex] 100 mg PO BID PRN 08/06/23 08/06/23 History diphenhydrAMINE HCL [Benadryl] 25 mg PO HS 08/06/23 08/06/23 History metFORMIN HCL 1,000 mg PO DAILY PRN 08/06/23 08/06/23 History Allergies Allergy/AdvReac Type Severity Reaction Status Date / Time No Known Allergies Allergy Verified 08/06/23 12:02 Physical Examination Osteopathic Statement: *. No significant issues noted on an osteopathic structural exam other than those noted in the History and Physical/Consult. Patient is a 77-year-old female in no acute distress. She is alert and oriented. Exam of the left ankle reveals an open wound and obvious deformity. Pedal pulses are present. Capillary refill less than 3 seconds. - Fracture left ankle Appearance: swelling Open wound: 6cm open skin tear along the anteromedial aspect of the tibia. Bone is exposed. Compartments: soft Distal extremity neurovascularly intact: Yes Results Summary of the left tib-fib reveals a trimalleolar displaced ankle fracture. - Labs Labs: Abnormal Lab Results - Last 24 Hours (Table) 08/06/23 08/06/23 08/06/23 Range/Units 05:39 05:39 06:28 APTT 21.2 L (22.0-30.0) sec BUN 20 H (7-17) mg/dL Glucose 100 H (74-99) mg/dL POC Glucose (mg/dL) 128 H (70-110) mg/dL H & H 08/06/23 Range/Units 05:39 Hgb 12.6 (11.4-16.0) gm/dL Hct 37.1 (34.0-46.0) % Coagulation 08/06/23 Range/Units 05:39 INR 0.9 (<1.2) Result Diagrams: 08/06/23 05:39 08/06/23 05:39 Assessment and Plan (1) Open left trimalleolar fracture Current Visit: Yes Status: Acute Code(s): S82.852B - DISPLACED TRIMALLEOL FX L LOW LEG, INIT FOR OPN FX TYPE I/2 SNOMED Code(s): 54612023 (2) Fall Current Visit: Yes Status: Acute Code(s): W19.XXXA - UNSPECIFIED FALL, INITIAL ENCOUNTER SNOMED Code(s): 8258878 Plan: Clinical and x-ray findings were discussed with the patient. The patient will be taken to the OR this morning for a washout and either a ORIF or external fixator application to the left ankle. Surgical risks were discussed at length with the patient. Possible risks and complications including but not limited to risk of bleeding, infection, dislocation, DVT, stroke, heart attack, and were discussed. She will remain n.p.o.
[2023-08-06] MEDS: SODIUM CHLORIDE 0.9% 1,000 ML IV SCH (10:22)
[2023-08-06] MEDS: FAMOTIDINE 20 MG TAB PO SCH (10:23)
[2023-08-06 11:40] LABS: Glucose,Whole Blood 62 mg/dL (70-110)
[2023-08-06 12:02] LABS: Glucose,Whole Blood 81 mg/dL (70-110)
--- NOTE | 2023-08-06 15:41 | P.OP ---
Date of Procedure: 08/06/23 Preoperative Diagnosis: Left open bimalleolar fracture dislocation Postoperative Diagnosis: same Procedure(s) Performed: 1. Left ankle debridement of open fracture 2. Left ankle open reduction internal fixation, bimalleolar Implants: Stanton 3 hole distal fibula locking plate, 4.0 x 4mm cannulated screw Anesthesia: MAC, spinal Surgeon: Carola Rod Estimated Blood Loss (ml): 10 Pathology: none sent Condition: stable Disposition: PACU Indications for Procedure: Patient fell this morning sustaining a grade 2 open fracture dislocation of her left ankle. It was irrigated, reduced, and splinted in the ER. She received IV ancef. We discussed her injury and she agrees with I&D and ex fix vs ORIF. Operative Findings: 6cm skin tear over anteromedial tibia to the level of bone. Bimalleolar fracture Description of Procedure: Patient, operative extremity, and procedure were identified in the preop area. Informed consent obtained. She was then brought back and received a spinal block. The leg was placed on a bone foam and tourniquet placed on the thigh. Leg was prepped with iodine and draped in normal sterile fashion. Time out was performed. Tourniqet inflated. Attention was first turned to the wound. The medial mallelous fracture was easily accessed through the wound. This was irrigated with 3L of normal saline. The ends of the fracture were debrided gently with a curette. All nonviable or foreign tissue was removed. A large tenuclum was them used to reduce the fracture. A guide wire was introduced in a retrograde fashion across the fracture site into the physeal scar. The placement and reduction was checked on orthogonal views. A small incision was made at the guidewire. This was overdrilled and a 44 x 4.0mm cannulated was selected and inserted. It was tightened with the tenaculum providing compression. The tenaculum was then removed without any shifting of the fracture. Guide wire was removed. Attention was then turned to the fibula. A longitudinal incision was made posterolateral of the fibula. Dissection was carried down to bone with care taken to protect the cutaneous nerve. The 3 hold plate was selcted and provisionally fixed with an olive wire. fluoro showed acceptable alignement and hardware placement. The distal aspect of the plate was filled with 3unicortical locking screws and the proxial aspect of the plate was fixated with 3.0 nonlo cking screws. Tourniquet was let down. Hemostasis achieved. The lateral wound was closed with 0 vycril and 3.0 nylon. The anterior wound was closed with 3.0 nylon without tension. A provena dressing was then applied overtop. Tubing was padded and the leg was placed into a well padded AO splint. Patient was aroused by the anesthesia team and brought back to the PACU in stable condition.
[2023-08-06 16:27] LABS: Glucose,Whole Blood 50 mg/dL (70-110)
[2023-08-06 16:46] LABS: Glucose,Whole Blood 120 mg/dL (70-110)
[2023-08-06] MEDS: ONDANSETRON 4 MG/2 ML VIAL IVP PRN (18:06)
[2023-08-06 19:18] LABS: Glucose,Whole Blood 85 mg/dL (70-110)
[2023-08-06] MEDS: HYDROmorphone 1 MG/ML 1 ML SYRINGE IVP PRN (19:33)
[2023-08-06] MEDS: HYDROcodone/APAP 5-325MG 1 EACH TAB PO PRN (23:13)
[2023-08-07 01:54] LABS: Glucose,Whole Blood 110 mg/dL (70-110)
[2023-08-07 05:57] LABS: Glucose,Whole Blood 109 mg/dL (70-110)
--- NOTE | 2023-08-07 06:29 | P.PN ---
Progress Note - Text 08/07/23 545am 77 year old female s/p orif ankle,patient recieved duramorph for his spinal, patient seen and evaluated for post op pain, she has a vas of 4 with no complaints of n/v or pruritis.doing well
[2023-08-07] MEDS: ASPIRIN 81 MG PO SCH (08:11)
[2023-08-07] MEDS ORDERED: FUROSEMIDE 20 MG TAB PO PRN (09:45)
[2023-08-07] MEDS ORDERED: SUMAtriptan succinate 50 MG TAB PO PRN (09:45)
[2023-08-07] MEDS ORDERED: DEXTROSE 50% SYRINGE 50 ML IVP PRN ×2 (09:46)
[2023-08-07] MEDS: ATORVASTATIN 20 MG TAB PO SCH (10:56)
[2023-08-07] MEDS: SERTRALINE 100 MG TAB PO SCH (11:19)
[2023-08-07 11:27] LABS: Glucose,Whole Blood 130 mg/dL (70-110)
[2023-08-07] MEDS: INSULIN ASPART (NovoLOG) 100 UNIT/ML VIAL SQ SCH (11:43)
[2023-08-07] MEDS ORDERED: metFORMIN 500 MG TAB PO PRN (12:40)
--- NOTE | 2023-08-07 12:49 | FL ---
Fluoroscopy History: ORIF Left Ankle ORIF Left Ankle 38sec fluoro time 0.3634 DAP
--- NOTE | 2023-08-07 13:03 | XR ---
EXAMINATION TYPE: XR chest 1V portable DATE OF EXAM: 08/07/2023 COMPARISON: NONE HISTORY: Shortness of breath TECHNIQUE: Single frontal view of the chest is obtained. FINDINGS: There is no focal air space opacity, pleural effusion, or pneumothorax seen. The cardiac silhouette size is within normal limits. The osseous structures are intact. Ectasia of the aorta. L imited inspiration with elevated right hemidiaphragm. Arthropathy of the shoulders. IMPRESSION: No acute process.
--- NOTE | 2023-08-07 13:06 | CONS ---
CONSULTATION REASON FOR CONSULTATION: Advice regarding diabetes mellitus and other medical issues, requested by Orthopedics. HISTORY OF PRESENT ILLNESS: This is a 77-year-old woman with a past medical history of diabetes, hyperlipidemia, underwent open reduction and internal fixation of the left ankle fracture. The patient complains of COPD. No chest pain. No palpitation. The patient has minimal help at home. The patient is being evaluated for rehab at this time. There is no history of any fever, rigors, or chills. PAST MEDICAL HISTORY: Reviewed include diabetes mellitus, hyperlipidemia. Rest of the history and rest of the chart is also reviewed. HOME MEDICATIONS: Reviewed include aspirin. Doses and rest of medications reviewed. ALLERGIES: None. FAMILY HISTORY: No history of heart disease or strokes in the family. SOCIAL HISTORY: No history of smoking. REVIEW OF SYSTEMS: A 14-point review is negative except as mentioned earlier. PHYSICAL EXAMINATION: VITAL SIGNS: Pulse 76, blood pressure 115/54, respirations 18. HEENT: Conjunctivae normal. NECK: No jugular venous distention. CARDIOVASCULAR: S1, S2 muffled. RESPIRATIONS: Breath sounds diminished at the bases. No rhonchi. No crackles. ABDOMEN: Soft. LEGS: Status post left ankle fracture. NERVOUS SYSTEM: Nonfocal. SKIN: No ulcer, rash, or bleeding. JOINTS: No active deforming arthropathy. LABORATORY DATA: CBC within normal limits. Otherwise, glucose noted. ASSESSMENT: 1. Status post left ankle open reduction and internal fixation. 2. Diabetes mellitus, type 2. 3. Hyperlipidemia. 4. History of cholecystectomy. 5. History of anxiety and depression. 6. Gait dysfunction. 7. Severe pain. RECOMMENDATIONS AND DISCUSSION: This is a 77-year-old woman, who presented with multiple complex medical issues. At this time, I recommend to continue the current medications, continue symptomatic treatment, pain management. Resume the home medication. Monitor blood sugars closely. Otherwise, I would also recommend DVT prophylaxis. Closely follow with Orthopedic Surgery, PT, OT evaluation, possible ECF rehab. Prognosis guarded. Further recommendations to follow. MMODL / IJN: [id number] /
--- NOTE | 2023-08-07 13:08 | P.PN ---
Subjective Progress Note Date: 08/07/23 Principal diagnosis: Status post left ankle I&D and ORIF This is a 77 year-old female post left ankle I&D and ORIF. This is post-op day 1. The patient was evaluated in the recliner chair at the bedside today. The patient denies nausea, vomiting, abdominal pain, chest pain, or shortness of breath this morning. She states her pain is controlled at this time. The patient has been up with physical therapy this morning. Objective - Vital Signs Vital signs: Vital Signs Temp 98.6 F 08/07/23 07:43 Pulse 78 08/07/23 07:43 Resp 18 08/07/23 07:43 BP 115/54 08/07/23 07:43 Pulse Ox 97 08/07/23 09:44 FiO2 Intake & Output 08/06/23 08/07/23 08/07/23 18:59 06:59 18:59 Intake Total 700 220 Output Total 110 Balance 590 220 Intake: IV 700 Oral 220 Output: Urine 100 Estimated Blood Loss 10 Other: # Voids 2 - Exam The patient does not appear in acute distress. Alert and orientated x3. Dressing and splint is clean dry and intact. Prevena in place with minimal drainage. Able to wiggle her toes without difficulty. Sensation and circulatory status is intact. - Labs CBC & Chem 7: 08/06/23 05:39 08/06/23 05:39 Labs: Abnormal Lab Results - Last 24 Hours (Table) 08/06/23 08/06/23 08/06/23 Range/Units 05:41 16:26 16:44 POC Glucose (mg/dL) 50 L 120 H (70-110) mg/dL Hemoglobin A1c 6.6 H (<=6.0) % 08/07/23 Range/Units 11:24 POC Glucose (mg/dL) 130 H (70-110) mg/dL Hemoglobin A1c (<=6.0) % Assessment and Plan (1) Fall Current Visit: Yes Status: Acute Code(s): W19.XXXA - UNSPECIFIED FALL, INITIAL ENCOUNTER SNOMED Code(s): 9797099 (2) Open bimalleolar fracture of left ankle Current Visit: Yes Status: Acute Code(s): S82.842B - DISPLACED BIMALLEOL FX L LOW LEG, INIT FOR OPN FX TYPE I/2 SNOMED Code(s): 40098606 Plan: 1. Continue pain control 2. Anticoagulation with Aspirin 3. Start physical therapy and ambulation, non-weightbearing left leg 4. Elevate and ice left ankle 5. Anticipate discharge to skilled rehab
[2023-08-07] MEDS: HEPARIN SODIUM,PORCINE 5,000 UNIT/ML 1 ML VIAL SQ SCH (13:20)
[2023-08-07 16:41] LABS: Glucose,Whole Blood 362 mg/dL (70-110)
[2023-08-07] MEDS: diphenhydrAMINE 25 MG CAP PO SCH (20:27)
[2023-08-07] MEDS: lisinopriL 10 MG TAB PO SCH (20:27)
[2023-08-07] MEDS: DOCUSATE 100 MG CAP PO SCH (20:27)
[2023-08-07] MEDS: LORATADINE 10 MG TAB PO SCH (20:27)
[2023-08-07] MEDS: HYDROcodone/APAP 5-325MG 1 EACH TAB PO PRN (20:31)
[2023-08-07] MEDS ORDERED: FIBER WELL GUMMIES PO SCH (21:00)
[2023-08-07 21:17] LABS: Glucose,Whole Blood 254 mg/dL (70-110)
[2023-08-08 10:32] LABS: Glucose,Whole Blood 226 mg/dL (70-110)
[2023-08-08 11:15] LABS: Basophils # (A) 0.03 X 10*3/uL (0.00-0.10); Basophils % (A) 0.5 %; Eosinophils % (A) 1.6 %; HCT 27.6 % (37.2-46.3); Lymphocytes % (A) 22.7 %; MCH 30.4 pg (27.0-32.0); MCHC 32.6 g/dL (32.0-37.0); MCV 93.2 FL (80.0-97.0); Mean Platelet Volume 10.3 FL (9.5-12.2); Monocytes # (A) 0.84 X 10*3/uL (0.20-1.00); Monocytes % (A) 13.6 %; NRBC Per 100 WBC 0 X 10*3/uL (0.00-0.01); Neutrophils # (A) 3.76 X 10*3/uL (1.80-7.70); Neutrophils % (A) 60.8 %; Platelet Count 136 X 10*3/uL (140-440); RBC 2.96 X 10*6/uL (4.10-5.20); WBC 6.18 X 10*3/uL (4.50-10.00)
[2023-08-08 11:16] LABS: Glucose,Whole Blood 173 mg/dL (70-110)
--- NOTE | 2023-08-08 13:19 | P.PN ---
Subjective Progress Note Date: 08/08/23 Principal diagnosis: Status post left ankle I&D and ORIF This is a 77 year-old female post left ankle I&D and ORIF. This is post-op day 2. The patient was evaluated in the recliner chair at the bedside today. The patient denies nausea, vomiting, abdominal pain, chest pain, or shortness of breath this morning. She states her pain is controlled at this time. The patient has been up with physical therapy this morning. She has tested positive for COVID. Objective - Vital Signs Vital signs: Vital Signs Temp 100.8 F H 08/08/23 02:00 Pulse 60 08/08/23 08:23 Resp 14 08/08/23 08:23 BP 118/71 08/08/23 02:00 Pulse Ox 95 08/08/23 02:00 FiO2 Intake & Output 08/07/23 08/08/23 08/08/23 18:59 06:59 18:59 Intake Total 350 Output Total 900 300 Balance -550 -300 Intake: Oral 350 Output: Urine 900 300 - Exam The patient does not appear in acute distress. Alert and orientated x3. Dressing and splint is clean dry and intact. Prevena in place with minimal drainage. Able to wiggle her toes without difficulty. Sensation and circulatory status is intact. - Labs CBC & Chem 7: 08/08/23 07:47 08/06/23 05:39 Labs: Abnormal Lab Results - Last 24 Hours (Table) 08/07/23 08/07/23 08/07/23 Range/Units 14:30 16:31 21:14 RBC (4.10-5.20) X 10*6/uL Hgb (12.0-15.0) g/dL Hct (37.2-46.3) % Plt Count (140-440) X 10*3/uL Immature Gran # (0.00-0.04) X 10*3/uL POC Glucose (mg/dL) 362 H 254 H (70-110) mg/dL Hemoglobin A1c (<=6.0) % SARS-CoV-2 (PCR) Detected A (Not Detectd) 08/08/23 08/08/23 08/08/23 Range/Units 05:48 07:47 07:47 RBC 2.96 L (4.10-5.20) X 10*6/uL Hgb 9.0 L (12.0-15.0) g/dL Hct 27.6 L (37.2-46.3) % Plt Count 136 L (140-440) X 10*3/uL Immature Gran # 0.05 H (0.00-0.04) X 10*3/uL POC Glucose (mg/dL) 226 H (70-110) mg/dL Hemoglobin A1c 6.9 H (<=6.0) % SARS-CoV-2 (PCR) (Not Detectd) 08/08/23 Range/Units 11:15 RBC (4.10-5.20) X 10*6/uL Hgb (12.0-15.0) g/dL Hct (37.2-46.3) % Plt Count (140-440) X 10*3/uL Immature Gran # (0.00-0.04) X 10*3/uL POC Glucose (mg/dL) 173 H (70-110) mg/dL Hemoglobin A1c (<=6.0) % SARS-CoV-2 (PCR) (Not Detectd) Assessment and Plan (1) Fall Current Visit: Yes Status: Acute Code(s): W19.XXXA - UNSPECIFIED FALL, INITIAL ENCOUNTER SNOMED Code(s): 8474920 (2) Open bimalleolar fracture of left ankle Current Visit: Yes Status: Acute Code(s): S82.842B - DISPLACED BIMALLEOL FX L LOW LEG, INIT FOR OPN FX TYPE I/2 SNOMED Code(s): 76758977 Plan: 1. Continue pain control 2. Anticoagulation with Aspirin 3. Continue physical therapy and ambulation, non-weightbearing left leg 4. Elevate and ice left ankle 5. Anticipate discharge to skilled rehab Agree with above. Patient is doing well. She understandably has issues with mobility now and will likely need SNF on discharge. Pain is controlled. Continue NWB. Maintain splint and negative pressure wound dressing.
[2023-08-08 16:42] LABS: Glucose,Whole Blood 202 mg/dL (70-110)
[2023-08-08] MEDS: ZINC SULFATE 220 MG CAP PO SCH (17:28)
[2023-08-08] MEDS: ENOXAPARIN 40 MG/0.4 ML SYRINGE SQ SCH (17:28)
[2023-08-08] MEDS: CHOLECALCIFEROL 25 MCG (1000 IU) TABLET PO SCH (17:29)
[2023-08-08 20:45] LABS: Glucose,Whole Blood 190 mg/dL (70-110)
--- NOTE | 2023-08-09 00:24 | PN ---
PROGRESS NOTE DATE OF SERVICE: 08/08/2023 SUBJECTIVE: This is a 77-year-old woman who was admitted after left ankle ORIF, is having some cough. Further testing showed COVID-19 positive. Otherwise, the chest x-ray did not show any acute abnormality. The patient is not hypoxic. No chest pain or palpitations. OBJECTIVE: VITAL SIGNS: Pulse is 60, blood pressure 118/71, respirations 14, and temperature was 100.8. CHEST: Few scattered rhonchi. ABDOMEN: Soft. NERVOUS SYSTEM: No focal deficits. LABORATORY DATA: Reviewed. ASSESSMENT: 1. Status post left ankle open reduction and internal fixation. 2. Acute COVID-19 with fever. 3. Diabetes mellitus type 2. 4. Hyperlipidemia. 5. History of cholecystectomy. 6. Anxiety, depression. 7. Gait dysfunction. 8. Severe pain. RECOMMENDATIONS: Recommended to continue current management, continue symptomatic treatment, otherwise at this time I will recommend Lovenox, zinc, and the usual medications, continue rest of medications. Closely follow with Orthopedic surgery. Further recommendations to follow. Repeat labs. Possible ECF rehab because of multiple complex medical issues as detailed above. MMODL / IJN: [id number] /
[2023-08-09 06:03] LABS: Glucose,Whole Blood 132 mg/dL (70-110)
[2023-08-09 08:06] VITALS: BP 131/57; PULSE 72; RESP 19; TEMP 98.9
--- NOTE | 2023-08-09 09:05 | P.PN ---
Subjective Progress Note Date: 08/09/23 Principal diagnosis: Status post left ankle I&D and ORIF This is a 77 year-old female post left ankle I&D and ORIF. This is post-op day 3. The patient was evaluated at the bedside today. The patient denies nausea, vomiting, abdominal pain, chest pain, or shortness of breath this morning. She states her pain is controlled at this time. The patient has been up with physical therapy this morning. She has tested positive for COVID. We are awaiting rehab placement. Objective - Vital Signs Vital signs: Vital Signs Temp 98.9 F 08/09/23 06:59 Pulse 72 08/09/23 06:59 Resp 19 08/09/23 06:59 BP 131/57 08/09/23 06:59 Pulse Ox 98 08/09/23 06:59 FiO2 Intake & Output 08/08/23 08/09/23 08/09/23 18:59 06:59 18:59 Output Total 750 1200 Balance -750 -1200 Output: Urine 750 1200 - Exam The patient does not appear in acute distress. Alert and orientated x3. Dressing and splint is clean dry and intact. Prevena in place with minimal drainage. Able to wiggle her toes without difficulty. Sensation and circulatory status is intact. - Labs CBC & Chem 7: 08/08/23 07:47 08/06/23 05:39 Labs: Abnormal Lab Results - Last 24 Hours (Table) 08/08/23 08/08/23 08/08/23 Range/Units 05:48 07:47 07:47 RBC 2.96 L (4.10-5.20) X 10*6/uL Hgb 9.0 L (12.0-15.0) g/dL Hct 27.6 L (37.2-46.3) % Plt Count 136 L (140-440) X 10*3/uL Immature Gran # 0.05 H (0.00-0.04) X 10*3/uL POC Glucose (mg/dL) 226 H (70-110) mg/dL Hemoglobin A1c 6.9 H (<=6.0) % 08/08/23 08/08/23 08/08/23 Range/Units 11:15 16:35 20:44 RBC (4.10-5.20) X 10*6/uL Hgb (12.0-15.0) g/dL Hct (37.2-46.3) % Plt Count (140-440) X 10*3/uL Immature Gran # (0.00-0.04) X 10*3/uL POC Glucose (mg/dL) 173 H 202 H 190 H (70-110) mg/dL Hemoglobin A1c (<=6.0) % 08/09/23 Range/Units 06:01 RBC (4.10-5.20) X 10*6/uL Hgb (12.0-15.0) g/dL Hct (37.2-46.3) % Plt Count (140-440) X 10*3/uL Immature Gran # (0.00-0.04) X 10*3/uL POC Glucose (mg/dL) 132 H (70-110) mg/dL Hemoglobin A1c (<=6.0) % Assessment and Plan (1) Fall Current Visit: Yes Status: Acute Code(s): W19.XXXA - UNSPECIFIED FALL, INITIAL ENCOUNTER SNOMED Code(s): 3262028 (2) Open bimalleolar fracture of left ankle Current Visit: Yes Status: Acute Code(s): S82.842B - DISPLACED BIMALLEOL FX L LOW LEG, INIT FOR OPN FX TYPE I/2 SNOMED Code(s): 39164091 Plan: 1. Continue pain control 2. Anticoagulation with Lovenox 3. Continue physical therapy and ambulation, non-weightbearing left leg 4. Elevate and ice left ankle 5. Anticipate discharge to skilled rehab
[2023-08-09] MEDS ORDERED: MAGNESIUM HYDROXIDE 2,400 MG/30 ML CUP PO PRN (09:11)
[2023-08-09] MEDS ORDERED: bisacodyL 10 MG SUPP RECTAL PRN (09:12)
--- NOTE | 2023-08-09 10:05 | P.DS ---
Providers Date of admission: 08/06/23 05:27 Expected date of discharge: 08/09/23 Attending physician: Carola Rod DO Consults: 08/06/23 11:37 Consult Physician Routine Consulting Provider: Christine Worthy Consult Reason/Comments: medical management Do you want consulting provider notified?: Yes Primary care physician: Doyle Chamorro - Discharge Diagnosis(es) (1) Fall Current Visit: Yes Status: Acute (2) Open bimalleolar fracture of left ankle There was a large open wound that was repaired. There is a negative wound dressing over the repair. We will leave this one for two weeks in the boot. We will be checking on this in two weeks. Current Visit: Yes Status: Acute Hospital Course: This is a 77-year-old female who presented to the emergency department at [facility] with a left ankle injury. She would found to have an open ankle fracture. After discussion and consideration the patient elects to proceed with left ankle I&D and ORIF. The patient is admitted to [facility] on 08/06/2023 for left ankle I&D and ORIF. She is doing well postoperatively. Vital signs and hemoglobin are stable. The patient is able to get up out of bed and is ambulating with a walker. Pain is well controlled. Splint and wound vac is in place. Patient is discharged to home on postoperative day #3 in good condition. Please see med rec for accurate list of home medications. Pertinent Studies: Laboratory Tests 08/08/23 08/09/23 07:47 06:01 WBC 6.18 RBC 2.96 L Hgb 9.0 L Hct 27.6 L Plt Count 136 L POC Glucose (mg/dL) 132 H Patient Condition at Discharge: Stable Plan - Discharge Summary Discharge Rx Participant: No New Discharge Prescriptions: New Multivitamins, Thera [Multivitamin (formulary)] 1 each PO DAILY@1200 tab HYDROcodone/APAP 5-325MG [[place] 5] 1 - 2 each PO Q4-6H PRN #32 tab PRN Reason: Pain Docusate [Colace] 100 mg PO BID #60 capsule Enoxaparin [Lovenox] 40 mg SQ DAILY each Magnesium Hydroxide [Milk of Magnesia] 2,400 mg PO DAILY PRN ml PRN Reason: Constipation INSULIN ASPART (NovoLOG) [NovoLOG (formulary)] 0 unit SQ ACHS each Zinc Sulfate [Orazinc] 220 mg PO DAILY 14 Days #14 cap Famotidine [Pepcid] 20 mg PO BID tab Cholecalciferol [Vitamin D3 (25 Mcg = 1000 Iu)] 50 mcg PO DAILY tab Continue ramipriL [Altace] 2.5 mg PO HS traMADol HCL [Ultram] 50 mg PO BID PRN PRN Reason: Pain Simvastatin [Zocor] 40 mg PO DAILY Sertraline [Zoloft] 150 mg PO DAILY metFORMIN HCL 1,000 mg PO DAILY PRN PRN Reason: high blood sugar diphenhydrAMINE HCL [Benadryl] 25 mg PO HS Furosemide [Lasix] 20 mg PO DAILY PRN PRN Reason: Edema Aspirin EC [Ecotrin Low Dose] 81 mg PO DAILY SUMAtriptan succinate [Imitrex] 100 mg PO BID PRN PRN Reason: Migraine Headache Loratadine 10 mg PO HS Docusate [Colace] 100 mg PO HS Fiber Well Gummies 1 cap PO HS Discontinued Insulin NPH Human Isophane [NovoLIN N] 15 - 45 unit SQ BID Azithromycin [Zithromax Z Pack] See Taper PO DIRECTED Discharge Medication List Sertraline [Zoloft] 150 mg PO DAILY 11/28/18 [History] Simvastatin [Zocor] 40 mg PO DAILY 11/28/18 [History] ramipriL [Altace] 2.5 mg PO HS 11/28/18 [History] traMADol HCL [Ultram] 50 mg PO BID PRN 11/28/18 [History] Aspirin EC [Ecotrin Low Dose] 81 mg PO DAILY 08/06/23 [History] Docusate [Colace] 100 mg PO HS 08/06/23 [History] Fiber Well Gummies 1 cap PO HS 08/06/23 [History] Furosemide [Lasix] 20 mg PO DAILY PRN 08/06/23 [History] Loratadine 10 mg PO HS 08/06/23 [History] SUMAtriptan succinate [Imitrex] 100 mg PO BID PRN 08/06/23 [History] diphenhydrAMINE HCL [Benadryl] 25 mg PO HS 08/06/23 [History] metFORMIN HCL 1,000 mg PO DAILY PRN 08/06/23 [History] Cholecalciferol [Vitamin D3 (25 Mcg = 1000 Iu)] 50 mcg PO DAILY tab 08/09/23 [Rx] Docusate [Colace] 100 mg PO BID #60 capsule 08/09/23 [Rx] Enoxaparin [Lovenox] 40 mg SQ DAILY each 08/09/23 [Rx] Famotidine [Pepcid] 20 mg PO BID tab 08/09/23 [Rx] HYDROcodone/APAP 5-325MG [[place] 5] 1 - 2 each PO Q4-6H PRN #32 tab 08/09/23 [Rx] INSULIN ASPART (NovoLOG) [NovoLOG (formulary)] 0 unit SQ ACHS each 08/09/23 [Rx] Magnesium Hydroxide [Milk of Magnesia] 2,400 mg PO DAILY PRN ml 08/09/23 [Rx] Multivitamins, Thera [Multivitamin (formulary)] 1 each PO DAILY@1200 tab 08/09/23 [Rx] Zinc Sulfate [Orazinc] 220 mg PO DAILY 14 Days #14 cap 08/09/23 [Rx] Follow up Appointment(s)/Referral(s): Lucy Chung NPC [Nurse Practitioner] - 08/24/23 9:00 am Doyle Chamorro DO [Primary Care Provider] - 1 Week (Rehab please call for follow-up appointment.) Homar Haines DO [REFERRING] - 1 Week (Office did not answer. Please call for appointment.) Activity/Diet/Wound Care/Special Instructions: Keep splint clean and dry Maintain wound vac until follow up Elevate and ice left ankle Follow up with Lucy Chung NP in 2 weeks. Call [facility] with any questions or concerns, . Discharge Disposition: TRANSFER TO SNF/ECF
[2023-08-09 11:04] LABS: Basophils # (A) 0.04 X 10*3/uL (0.00-0.10); Basophils % (A) 0.7 %; Eosinophils # (A) 0.16 X 10*3/uL (0.04-0.35); Eosinophils % (A) 2.6 %; HCT 28.9 % (37.2-46.3); HGB 9.6 g/dL (12.0-15.0); Lymphocytes # (A) 1.27 X 10*3/uL (0.90-5.00); Lymphocytes % (A) 20.8 %; MCH 30.4 pg (27.0-32.0); MCHC 33.2 g/dL (32.0-37.0); MCV 91.5 FL (80.0-97.0); Mean Platelet Volume 10.5 FL (9.5-12.2); Monocytes # (A) 0.61 X 10*3/uL (0.20-1.00); NRBC Per 100 WBC 0 X 10*3/uL (0.00-0.01); Neutrophils # (A) 3.97 X 10*3/uL (1.80-7.70); Neutrophils % (A) 64.9 %; Platelet Count 175 X 10*3/uL (140-440); RBC 3.16 X 10*6/uL (4.10-5.20); WBC 6.11 X 10*3/uL (4.50-10.00)
[2023-08-09 11:21] LABS: Glucose,Whole Blood 198 mg/dL (70-110)
[2023-08-09] MEDS: MULTIVITAMINS, THERA 1 EACH TAB PO SCH (11:26)
[2023-08-09 11:38] LABS: BUN/Creat Ratio 14.29 Ratio (12.00-20.00); Calcium 8.4 mg/dL (8.7-10.3); Carbon Dioxide 26.6 mmol/L (21.6-31.8); Chloride 105 mmol/L (96-109); Glucose 119 mg/dL (70-110); Potassium 3.8 mmol/L (3.5-5.5); Sodium 144 mmol/L (135-145)
--- NOTE | 2023-08-10 02:52 | PN ---
PROGRESS NOTE DATE OF SERVICE: 08/09/2023 SUBJECTIVE: This is a 77-year-old woman who was admitted after ankle ORIF, also had COVID. No chest pain, no palpitations, no fever. OBJECTIVE: VITAL SIGNS: Pulse is 72, blood pressure 130/50, and respirations 19. CHEST: Clear to auscultation. CARDIOVASCULAR: S1, S2. ABDOMEN: Soft. NERVOUS SYSTEM: No focal deficits. LABS: Hemoglobin 9.6. ASSESSMENT: 1. Status post left ankle open reduction internal fixation. 2. Acute COVID-19 with fever. 3. Diabetes mellitus, type 2. 4. Hyperlipidemia. 5. Cholecystectomy history. 6. Anxiety, depression. RECOMMENDATIONS AND DISCUSSION: Recommended to continue current management, continue symptomatic treatment. ECF rehab. The patient is stable from the COVID standpoint. Further recommendations to follow. MMODL / IJN: [id number] /
== END 2023-08-09 12:45 | DRG 492 ==
LOC: EC 03:11 → 4SSUR 05:27
PROVIDERS: ADMIT Orthopaedic Surgery Hand Surgery; ATTEND Orthopaedic Surgery Hand Surgery
PROC: 0QSJ04Z Reposition Right Fibula with Internal Fixation Device, Open Approach (ICD-10-PCS; 2023-08-06)
PROC: 0QSH04Z Reposition Left Tibia with Internal Fixation Device, Open Approach (ICD-10-PCS; principal; 2023-08-06 07:08)
DX: S82.852B Displaced trimalleolar fracture of left lower leg, initial encounter for open fracture type I or II (principal); U07.1 COVID-19; S91.011A Laceration without foreign body, right ankle, initial encounter; E11.9 Type 2 diabetes mellitus without complications; J44.9 Chronic obstructive pulmonary disease, unspecified; F32.A Depression, unspecified; E78.5 Hyperlipidemia, unspecified; F41.9 Anxiety disorder, unspecified; W01.0XXA Fall on same level from slipping, tripping and stumbling without subsequent striking against object, initial encounter; Y92.009 Unspecified place in unspecified non-institutional (private) residence as the place of occurrence of the external cause; Z79.4 Long term (current) use of insulin; Z79.82 Long term (current) use of aspirin; Z79.84 Long term (current) use of oral hypoglycemic drugs; Z79.899 Other long term (current) drug therapy; Z87.891 Personal history of nicotine dependence
CPT/HCPCS: 27752; 71045; 80048; 83036; 85025; 85610; 85730; 87636; 94760; 96365; 96375; 99284; 99285